=== PATIENT | female | born 1945 | race Caucasian/White ===

== ENCOUNTER → 2024-10-10 15:07 | Outpatient (CLI) | payer MEDICARE, OTHER, SELFPAY ==
--- NOTE | 2024-10-10 15:10 | DI.US.S_ITS ---
PROCEDURE: US PELVIC COMPLETE INDICATIONS: LOWER PELVIC PAIN TECHNIQUE: Real-time scanning was performed of the pelvic organs, with image documentation. Additional endovaginal scanning was necessary due to incomplete visualization of the adnexal and endometrial structures by transabdominal scanning. COMPARISON: None. FINDINGS: Uterus: Uterus is anteverted and normal in size at 2.7 x 3.6 x 4.8 cm. The myometrium is homogeneous. The endometrium measures 2.9 mm combined thickness. No fibroid seen. Ovaries: The right ovary is not identified. The left ovary is surgically absent. Other: No pathologic free abdominal or pelvic fluid. IMPRESSION: Normal appearing uterus. Nonvisualized right ovary. Surgically absent left ovary. No abnormal free fluid. Source of pelvic pain is not identified. We strive to produce accurate, complete, and clear reports of imaging services. To assist us in improving patient care, this report was composed using standard report templates and voice recognition software. Therefore, it may contain abnormal punctuation, insertions and/or omissions. Occasional wrong-word or sound-alike substitutions may occur. Though we review the report and make efforts to correct it, we do recommend that the report be read carefully in proper context to recognize any text inaccuracies. Dictated by: Jerzy Ritter M.D. on 10/10/2024 at 16:20 Approved by: Jerzy Ritter M.D. on 10/10/2024 at 16:21
== END ==
PROVIDERS: PCP Physician Assistant Medical; Referring Provider Obstetrics & Gynecology; Visit Provider Obstetrics & Gynecology
DX: R10.2 Pelvic and perineal pain (principal); Z90.721 Acquired absence of ovaries, unilateral
CPT/HCPCS: 76830; 76856